=== PATIENT | female | born 1965 | race Two or more races ===

== ENCOUNTER → 2016-11-04 | Outpatient (CLI) | payer MEDICAID ==
[~2016-11-04] MED LIST: NAPR220T95 PO; SIMV10TA PO; sleeping pill PO
[2016-11-04 13:34] LABS: AUTOMATED NEUTROPHIL # 5.1 TH/MM3 (1.8-7.7); BASOPHIL % 0.3 % (0.0-2.0); HEMATOCRIT 38.3 % (35.0-46.0); LYMPH % 21.5 % (9.0-44.0); LYMPHOCYTE # 1.5 TH/MM3 (1.0-4.8); MEAN CELL VOLUME 81.4 FL (80.0-100.0); MEAN CORPUSCULAR HEMOGLOBIN 27.9 PG (27.0-34.0); MEAN CORPUSCULAR HGB CONC 34.3 % (32.0-36.0); MONO % 6.5 % (0.0-8.0); NEUT % 71.7 % (16.0-70.0); PLATELET COUNT 270 TH/MM3 (150-450); RED CELL DISTRIBUTION WIDTH 12.4 % (11.6-17.2); WHITE BLOOD COUNT 7.1 TH/MM3 (4.0-11.0)
[2016-11-04 13:47] LABS: HEMO FLAGS DIFF FINAL
--- NOTE | 2016-11-04 21:15 | EKG ---
Date Performed: 11/04/2016 Time Performed: 13:02:32 PTAGE: 51 years EKG: BASELINE ARTIFACT PRESENT. Sinus arrhythmia Short DC interval Abnormal ECG NO PREVIOUS TRACING DOCTOR: Peyman Rod Interpretating Date/Time 11/04/2016 21:14:26
== END ==
LOC: PHPRE 12:15
PROVIDERS: ATTEND Orthopaedic Surgery
DX: Z01.812 Encounter for preprocedural laboratory examination (principal); Z01.810 Encounter for preprocedural cardiovascular examination; S83.242A Other tear of medial meniscus, current injury, left knee, initial encounter; I49.8 Other specified cardiac arrhythmias; R94.31 Abnormal electrocardiogram [ECG] [EKG]
CPT/HCPCS: 85025; 93005

== ENCOUNTER → 2016-11-11 | Day surgery (SDC) | payer MEDICAID ==
[~2016-11-11] VITALS: Ht 152.4 cm; Wt 98.0 kg
[~2016-11-11] MED LIST changes: +BUPIVACAINE/EPINEPHRINE 0.5% PF 30 ML VIAL ONE; +FAMOTIDINE 20 MG/2 ML VIAL ONE; +HYDROmorphone HCL PF 1 MG/ML VIAL ONE; +KETOROLAC TROMETHAMINE 30 MG/ML (IVP) VIAL ONE; +LACTATED RINGER'S 1000 ML INJ 1,000 ML ONE; +METOCLOPRAMIDE HCL 10 MG/2 ML VIAL ONE; +MIDAZOLAM HCL 2 MG/2 ML VIAL ONE; +MORPHINE SULFATE 4 MG/ML INJ ONE; +ONDANSETRON HCL 4 MG/2 ML VIAL IV PUSH ONE; +PROMETHAZINE INJ 25 MG/ML VIAL ONE; +PROPOFOL 200 MG/20 ML AMP IV ONE; +TRIAMCINOLONE ACETONIDE 40 MG/ML VIAL ONE; +fentaNYL CITRATE 250 MCG/5 ML AMP ONE
[2016-11-11 08:43] VITALS: BP 111/70; PULSE 55; RESP 16; TEMP 97.9; O2SAT 98
[2016-11-11 12:25] VITALS: BP 120/72; PULSE 70; RESP 16; TEMP 97.5; O2SAT 98
--- NOTE | 2016-11-15 10:59 | MP ---
cc: THELMA LAWTON M.D. DATE OF SURGERY 11/11/[address] Brennon Lawton PREOPERATIVE DIAGNOSIS Internal derangement with tear medial meniscus and osteoarthritis of the left knee joint. POSTOPERATIVE DIAGNOSIS 1. Osteoarthritis medial compartment. 2. Partial tear lateral meniscus. 3. Chondromalacia and arthritis of patella. 4. Synovitis PROCEDURE 1. Arthroscopic debridement with partial synovectomy. 2. Subtotal lateral meniscectomy. 3. Chondroplasty medial compartment and patella. DETAILS OF THE PROCEDURE The patient was placed on the operating table in the supine position. Adequate general anesthesia was administered by Dr. Call the anesthesiologist. The left knee was then prepped and draped in the usual sterile fashion. A time-out was called and the patient's name procedure, and location were fully confirmed. An Esmarch bandage was applied to the left lower extremity and inflated at the level of the mid thigh to 300. An anterolateral portal was created and the joint was distended with lactated Ringer's solution. A systematic examination of the knee joint was then carried out. There was some evacuation of clear fluid upon piercing the joint. The suprapatellar pouch did reveal a prominent plica along with severe synovitis with hypertrophic changes. The articular surface of the patella also showed grade one chondromalacia. The intercondylar fossa revealed fraying of the anterior and posterior cruciate ligaments, but they appeared to be grossly intact. The medial compartment revealed actual intact medial meniscus, but the articular surfaces of the medial femoral condyle and medial tibial plateau were severely arthritic with a large area of subchondral bone exposed at the level of the tibial plateau. Through an anteromedial portal an aggressive shaver was placed into the medial compartment and the articular surfaces on both sides fully debrided and chondroplasty performed. The rest of the meniscus was now visualized and found to be intact. The lateral compartment was entered and we did find tearing of the peripheral edge of the middle third of the lateral meniscus which was excised with the same motorized instrument. The articular surfaces were only minimally involved. The suprapatellar pouch was then reentered and a complete synovectomy of that area was carried out along with excision of plica. The articular surface was then debrided and chondroplasty performed for the patellofemoral joint itself and a corresponding area of this suprapatellar bone was also debrided. After thorough irrigation, all instruments were removed and the fluid aspirated. The two stab wounds were then closed with simple 3-0 nylon. An intra-articular injection of 1 cc Kenalog along with 10 cc of one-half percent Marcaine with epinephrine was instilled through the lateral portal. Xeroform gauze was applied over both stab wounds and the knee was immobilized in a bulky dressing. The tourniquet was deflated after 16 minutes. Sponge count, needle count and instrument counts were reported correct x2. The estimated blood loss was nil. The patient was transferred to recovery room in satisfactory condition. MD SIVAN Freed/AGUSTINA /11:19 AM /10:45 AM
== END | disposition home or self-care (01) ==
LOC: PHSDC 08:17 → EDUNIT# 10:30
PROVIDERS: ATTEND Orthopaedic Surgery
DX: S83.282A Other tear of lateral meniscus, current injury, left knee, initial encounter (principal)
CPT/HCPCS: 01400; 29881; J1170; J1885; J2250; J2270; J2405; J2550; J2765; J3010; J3301; J7120